=== PATIENT | male | born 1960 | race Caucasian/White ===

== ENCOUNTER 2023-05-08 08:36 | Day surgery (SDC) | payer MEDICAID ==
[~2023-05-08 08:36] MED LIST: LEVO25TA9 PO; LORA10TA7 PO; OMEP20 PO; PHEN100C9 PO; PHEN64.82 PO; SERT100T PO; SODIUM CHLORIDE 0.9% 0 ML ONE; TRIH2TAB3 PO; TRIL8 PO
[2023-05-08] MEDS ORDERED: SODIUM CHLORIDE 0.9% 1,000 ML IV ONE (09:00)
== END 2023-05-08 09:40 | disposition home or self-care (01) ==
LOC: SURGERY 08:36
PROVIDERS: ATTEND Specialist
DX: D64.9 Anemia, unspecified (principal); Z53.8 Procedure and treatment not carried out for other reasons; K92.1 Melena; K21.9 Gastro-esophageal reflux disease without esophagitis; K59.00 Constipation, unspecified
CPT/HCPCS: J7030

== ENCOUNTER 2023-07-11 08:27 | Day surgery (SDC) | payer MEDICAID ==
[~2023-07-11] VITALS: Ht 165.1 cm; Wt 80.9 kg
[~2023-07-11 08:27] MED LIST changes: +BENZ1TAB84 PO; +DIPH50CA35 PO; -LEVO25TA9 PO; +LEVO50TA11 PO; -LORA10TA7 PO; +PALI156D IM; -PHEN100C9 PO; +RISP2TAB45 PO; +SERT-439 PO; -SERT100T PO; -SODIUM CHLORIDE 0.9% 0 ML ONE; +SODIUM CHLORIDE 0.9% 1,000 ML ONE; +TEMA15CA PO; +TRAZ-257 PO; -TRIH2TAB3 PO; -TRIL8 PO
[2023-07-11] MEDS ORDERED: SODIUM CHLORIDE 0.9% 1,000 ML IV ONE (08:30)
[2023-07-11] MEDS ORDERED: OXYGEN THERAPY IH SCH (11:15)
== END 2023-07-11 12:25 | disposition home or self-care (01) ==
LOC: SURGERY 08:27
PROVIDERS: ATTEND Specialist
DX: D12.8 Benign neoplasm of rectum (principal); K64.0 First degree hemorrhoids; K44.9 Diaphragmatic hernia without obstruction or gangrene; K25.9 Gastric ulcer, unspecified as acute or chronic, without hemorrhage or perforation; K20.90 Esophagitis, unspecified without bleeding; G20.A1 Parkinson's disease without dyskinesia, without mention of fluctuations; E03.9 Hypothyroidism, unspecified; Z88.0 Allergy status to penicillin; Z88.8 Allergy status to other drugs, medicaments and biological substances; Z79.899 Other long term (current) drug therapy; Z98.890 Other specified postprocedural states
CPT/HCPCS: 45385; 43239; 88305; C1769; J7030